=== PATIENT | male | born 1940 | race Caucasian/White ===

== ENCOUNTER 2017-03-07 15:15 | Outpatient (CLI) | payer MEDICARE, BC | END 2017-03-07 15:16 | disposition home or self-care (01) | LOC: BICRAD 15:15 | PROVIDERS: ATTEND Internal Medicine | DX: R05 Cough (principal) | CPT/HCPCS: 71046 ==

== ENCOUNTER 2019-03-06 09:29 | Outpatient (CLI) | payer MEDICARE, BC ==
--- NOTE | 2019-03-06 11:15 | RAD ---
RIGHT SHOULDER THREE VIEWS: HISTORY: Osteoarthritis. COMPARISON: None. FINDINGS: Moderate degenerative disease of the acromioclavicular joint. Ribs are intact. No acute fracture or m alalignment. IMPRESSION: Moderate degenerative disease of the acromioclavicular joint. POS: CET
--- NOTE | 2019-03-06 11:26 | RAD ---
LEFT SHOULDER 3 VIEWS: Date: 03/06/2019 HISTORY: Osteoarthritis. COMPARISON: None. FINDINGS: No acute fracture or malalignment. Moderate degenerative disease acromioclavicular joint. Ribs are in tact. IMPRESSION: No acute osseous abnormality. POS: CET
--- NOTE | 2019-03-06 11:27 | RAD ---
LUMBAR SPINE 2 VIEWS: Date: 03/06/2019 HISTORY: Dorsalgia. COMPARISON: None. FINDINGS: There is low grade dextroscoliosis of the lumbar spine. Right upper quadrant surgical clips. No acute fracture. Multilevel degenerative disc space height loss throughout the lumbar spine, greatest at L3-4, as well as L1-2. There is 3 mm L3-4 retrolisthesis, indeterminate in nature. Multiple bridging anterior oste ophytes. IMPRESSION: Moderate spondylosis without acute osseous abnormality. POS: CET
--- NOTE | 2019-03-06 11:29 | RAD ---
LIMITED RIGHT HIP 2 VIEWS: Date: 03/06/2019 HISTORY: Osteoarthritis. COMPARISON: None. FINDINGS: There is small acetabular osteophyte formation. Phleboliths in the pelvis. No acute fracture or malal ignment. IMPRESSION: Mild degenerative disease right hip. POS: CET
--- NOTE | 2019-03-06 11:30 | RAD ---
LEFT HIP 2 VIEWS: Date: 03/06/2019 HISTORY: Osteoarthritis. COMPARISON: None. FINDINGS: Small acetabular osteophyte formation. Mild enthesopathic changes along the gluteus medius tendon ins ertion. No acute fracture or malalignment. Phleboliths in the pelvis. IMPRESSION: No acute osseous abnormality. Mild to moderate degenerative change. POS: CET
== END 2019-03-06 09:30 | disposition home or self-care (01) ==
LOC: BICRAD 09:29
PROVIDERS: ATTEND Internal Medicine
DX: M54.9 Dorsalgia, unspecified (principal); M16.0 Bilateral primary osteoarthritis of hip; M19.011 Primary osteoarthritis, right shoulder; M47.816 Spondylosis without myelopathy or radiculopathy, lumbar region; M25.50 Pain in unspecified joint
CPT/HCPCS: 36415; 72100; 80053; 81001; 82306; 82550; 82607; 82728; 82746; 83540; 85025; 85652; 86140

== ENCOUNTER 2019-04-05 14:20 | Outpatient (CLI) | payer MEDICARE, BC ==
--- NOTE | 2019-04-05 16:03 | BD ---
Exam: DEXA Bone Density 04/05/19 HISTORY: 79-year-old postmenopausal female for screening. FINDINGS: Lumbar Spine: BMD (g/cm2) T-SCORE L1 1.063 -0.1 L2 1.196 0.9 L3 1.240 1.2 L4 1.380 2.6 L1-L4 1.222 1.2 Left Femoral Neck: 0.782 -1.1 Total Proximal left Femur: 0.981 -0.3 Right Femoral Neck: 0.766 -1.2 Total Proximal right femur: 0.912 -0.8 Impression: Osteopenia. This patient has a ten year WHO fracture risk of a major osteoporotic fracture of 9.7% an d hip fracture of 3.3%. POS: TPC
== END 2019-04-05 14:21 | disposition home or self-care (01) ==
LOC: BICMAMMO 14:20
PROVIDERS: ATTEND Internal Medicine Rheumatology
DX: M81.0 Age-related osteoporosis without current pathological fracture (principal); M85.89 Other specified disorders of bone density and structure, multiple sites
CPT/HCPCS: 77080

== ENCOUNTER 2019-05-01 11:56 | Outpatient (CLI) | payer MEDICARE, BC ==
--- NOTE | 2019-05-01 13:53 | RAD ---
EXAM: CHEST TWO VIEWS 05/01/19 HISTORY: Cough for three months. COMPARISON: 03/07/17. FINDINGS: Heart size is normal. The lungs are clear. No confluent pneumonia, overt edema, or pleural effusion. IMPRESSION: No significant acute intrathoracic disease. Stable from prior study. POS: TPC
== END 2019-05-01 11:57 | disposition home or self-care (01) ==
LOC: BICRAD 11:56
PROVIDERS: ATTEND Internal Medicine
DX: R05 Cough (principal)
CPT/HCPCS: 71046

== ENCOUNTER 2024-11-05 12:31 | Outpatient (CLI) | payer MEDICARE, BC ==
[2024-11-05 13:58] LABS: #Basophils 0.03 10x3/uL (0.0-0.2); #Eosinophils 0.18 10x3/uL (0.0-0.7); #Monocytes 0.48 10x3/uL (0.11-0.59); #Neutrophils 3.21 10x3/uL (1.40-6.50); %Basophils 0.5 % (0.0-1.0); %Eosinophils 3.1 % (0.0-10.0); %Lymphocytes 32.4 % (21.0-51.0); %Monocytes 8.3 % (0.0-10.0); %Neutrophils 55.5 % (42.0-75.0); Hematocrit 36.9 % (42.0-52.0); Hemoglobin 11.9 g/dL (14.0-18.0); Mean Corpuscular Hemoglobin 32.5 pg (27.0-31.0); Mean Corpuscular Volume 100.8 fL (78.0-98.0); Platelet Count 186 10x3/uL (130-400); Red Blood Cell (RBC) Count 3.66 mill/uL (4.70-6.10); White Blood Cell (WBC) Count 5.78 10x3/uL (4.8-10.8)
[2024-11-05 14:12] LABS: INR-International Normal Ratio 1.0; Prothrombin Time 13.0 sec (12.0-14.7)
[2024-11-05 14:14] LABS: Anion Gap 9 mmol/L (10-20); BUN (Urea Nitrogen) 25 mg/dL (8.4-25.7); Calc. Creatinine Clearance 0 mL/min (70-130); Calcium 9.4 mg/dL (7.8-10.44); Carbon Dioxide 24 mmol/L (23-31); Chloride 109 mmol/L (98-107); Glucose 94 mg/dL (83-110); PTT 26.6 sec (22.9-36.1); Potassium 4.2 mmol/L (3.5-5.1); Sodium 138 mmol/L (136-145)
== END 2024-11-05 12:32 | disposition home or self-care (01) ==
LOC: LABBT 12:31
PROVIDERS: ATTEND Urology
DX: Z01.818 Encounter for other preprocedural examination (principal); N21.0 Calculus in bladder; R31.9 Hematuria, unspecified
CPT/HCPCS: 80048; 85025; 85610; 85730; 87086; 93005; 93010